=== PATIENT | male | born 1970 | race African-American/Black ===

== ENCOUNTER → 2016-09-25 | Outpatient (CLI) | payer OTHER ==
[~2016-09-25] MED LIST: ACET-1256 PO; ASPEC325 PO; ASPI325T45 PO; CEFT1INJ57 IV; DAPT500I IV; HYDR1OIN EXT; IBUP-1427 PO; MIRT15TA53 PO; NZRCR EXT; ULT50X PO; VANC500I IV
== END ==
LOC: C.LAB 23:57
PROVIDERS: ATTEND Nurse Practitioner Adult Health
DX: L03.116 Cellulitis of left lower limb (principal)

== ENCOUNTER → 2016-09-28 | Outpatient (CLI) | payer OTHER | LOC: C.LABSPEC 10:53 | DX: L03.90 Cellulitis, unspecified (principal) ==

== ENCOUNTER → 2016-10-01 | Outpatient (CLI) | payer OTHER | LOC: C.LABSPEC 11:26 | DX: L03.90 Cellulitis, unspecified (principal) ==

== ENCOUNTER 2016-10-05 11:01 | Inpatient (IN) | payer OTHER ==
[~2016-10-05] VITALS: Ht 188 cm; Wt 100.0 kg
[2016-10-05 11:07] VITALS: Ht 188 cm; Wt 100.0 kg
[2016-10-05] MEDS ORDERED: VANC500I IV (11:18)
[2016-10-05] MEDS ORDERED: CEFT1INJ57 IV (11:18)
[2016-10-05] MEDS ORDERED: MIRT15TA53 PO (11:19)
[2016-10-05] MEDS ORDERED: ACET-1256 PO (11:20)
[2016-10-05] MEDS ORDERED: MoRPHine SULFATE 4 MG/ML 1 ML CARP\\VIAL IV STA (11:39)
[2016-10-05] MEDS ORDERED: SODIUM CHLORIDE 0.9% 1000ML 1,000 ML IV ONE (11:45)
[2016-10-05 12:28] LABS: BASO % 0.6 %; BASO ABS # 0.02 K/uL (0-0.2); COMPLETE YES; EOS % 1.7 %; LYMPH % 23.7 %; LYMPH ABS # 0.82 K/uL (1.2-3.4); MEAN CELL VOLUME 93.7 fL (80-100); MEAN CORPUSCULAR HEMOGLOBIN 30.6 pg (25-34); MEAN CORPUSCULAR HGB CONC 32.7 g/dl (32-36); MEAN PLATELET VOLUME 9.9 fL (7.4-10.4); MONO % 6.1 %; NEUT % 67.9 %; PLATELET COUNT 195 K/uL (130-400); RED BLOOD COUNT 3.95 M/uL (4.7-6.1); WHITE BLOOD COUNT 3.46 K/uL (4.8-10.8)
[2016-10-05 12:53] LABS: BUN/CREATININE RATIO 9.5 (10-20); CALCIUM 8.6 mg/dl (8.5-10.1); CREATININE 1.1 mg/dl (0.60-1.40); POTASSIUM 3.5 mmol/L (3.5-5.1)
--- NOTE | 2016-10-05 14:46 | DIAGNOSTIC IMAGING REPORT ---
ULTRASOUND LEFT LOWER EXTREMITY VENOUS CLINICAL HISTORY: Left leg pain and erythema. COMPARISON STUDY: No priors. TECHNIQUE: Real-time, grayscale, and color Doppler sonography of the deep veins of the left lower extremity was performed from the inguinal crease to the calf. Compression and augmentation were utilized. FINDINGS: There is no sonographic evidence of deep venous thrombosis identified in the left lower extremity. The common femoral, superficial femoral, and popliteal veins are patent and normally compressible. The greater saphenous vein and the profunda femoris vein at the junction with the common femoral vein are clear. The visualized calf veins are patent. Superficial venous varicosities are identified in the calf, some of which demonstrate internal thrombus. Prominent left inguinal lymph nodes are incidentally noted. IMPRESSION: 1. There is no sonographic evidence of deep venous thrombosis identified in the left lower extremity. 2. There are superficial venous varicosities in the left calf. Some of these contain trace nonocclusive thrombus. 3. Prominent left inguinal lymph nodes are likely reactive. Clinical correlation will be required. Electronically signed by: Jareth Gonsalez M.D. 10/05/2016 2:45 PM Dictated Date/Time: 10/05/2016 2:44 PM
--- NOTE | 2016-10-05 15:34 | History and Physical ---
History & Physical Date & Time of Service: Oct 05, 2016 at 15:30 Chief Complaint: Bilateral Lower Extremity Pain, Warm To Touch Primary Care Physician: [place] History of Present Illness Source: patient 46 y/o M with no significant PMH , resident of [place] here with c/o b/l lower extremity swelling and pain which started about 2 weeks ago. He was initially treated with Augmentin for about a week and was later started on vancomycin from Sep 30. He also had an I&D done for a possible abscess which only drained blood. Us Doppler of LLE was negative. He developed fever since yesterday and his temperate was recorded at 102.5 F. He complains of excruciating pain in left lower extremity, 8/10 , worse on ambulation and palpation. also c/o RLE pain along and above the medial malleolus which started this morning and also noticed hyperpigmentation on the area. denies any h/o trauma/insect bites/loss of sensation/bluish discoloration of toes. He denies URTI s/s cough, wheezing, shortness of breath, claudication, cramping , abdominal pain, nausea, vomiting, diarrhea or urinary symptoms. Past Medical/Surgical History Depression Social History Smoking Status: Never Smoker Allergies Coded Allergies: Shrimp (Verified Allergy, Unknown, HIVES, 10/05/16) Home Medications Scheduled Ceftriaxone Sod (Rocephin), 2 GM IV DAILY Mirtazapine (Mirtazapine), 15 MG PO HS Vancomycin Hcl In Dextrose (Vancomycin Hcl In Dextros), 2 GM IV DAILY Scheduled PRN Acetaminophen (Tylenol), 1,000 MG PO QID PRN for Pain Review of Systems Constitutional: + chills, + fever Eyes: No worsening of vision ENT: No hearing loss Respiratory: No cough, No dyspnea on exertion, No shortness of breath, No sputum Cardiovascular: No chest pain Abdomen: No diarrhea, No nausea, No pain, No vomiting Genitourinary - Male: No dysuria, No urinary frequency Integumentary: + color change (increased pigmentatyion on RLE) Physical Exam Vital Signs Date Time Temp Pulse Resp B/P Pulse Ox O2 Delivery O2 Flow Rate FiO2 10/05/16 14:13 58 18 153/96 97 Room Air 10/05/16 12:31 65 18 169/113 97 Room Air 10/05/16 11:07 37.6 74 18 173/97 98 Room Air General Appearance: WD/WN, + mild distress Head: normocephalic Eyes: normal inspection ENT: hearing grossly normal Neck: supple, no adenopathy Respiratory/Chest: chest non-tender, lungs clear, normal breath sounds Cardiovascular: regular rate, rhythm, no murmur Abdomen/GI: normal bowel sounds, non tender, soft Back: normal inspection Extremities/Musculoskelatal: no calf tenderness Neurologic/Psych: alert, normal mood/affect, oriented x 3, + pertinent finding (LLE mild swelling and erythema. s/p I&D, warm and tender to palpation. normal ROM, pulses and sensation. RLE: hyperpigmemnted, extremely tender to palpation along medial malleolus, no erythema or warmth ) Skin: + pertinent finding (hyperpigmentation along RLE) Diagnostics Laboratory Results Results Past 24 Hours Test 10/05/16 12:10 10/05/16 12:13 Range/Units White Blood Count 3.46 4.8-10.8 K/uL Red Blood Count 3.95 4.7-6.1 M/uL Hemoglobin 12.1 14.0-18.0 g/dL Hematocrit 37.0 42-52 % Mean Corpuscular Volume 93.7 80-100 fL Mean Corpuscular Hemoglobin 30.6 25-34 pg Mean Corpuscular Hemoglobin Concent 32.7 32-36 g/dl Platelet Count 195 130-400 K/uL Mean Platelet Volume 9.9 7.4-10.4 fL Neutrophils (%) (Auto) 67.9 % Lymphocytes (%) (Auto) 23.7 % Monocytes (%) (Auto) 6.1 % Eosinophils (%) (Auto) 1.7 % Basophils (%) (Auto) 0.6 % Neutrophils # (Auto) 2.35 1.4-6.5 K/uL Lymphocytes # (Auto) 0.82 1.2-3.4 K/uL Monocytes # (Auto) 0.21 0.11-0.59 K/uL Eosinophils # (Auto) 0.06 0-0.5 K/uL Basophils # (Auto) 0.02 0-0.2 K/uL RDW Standard Deviation 45.0 36.4-46.3 fL RDW Coefficient of Variation 13.1 11.5-14.5 % Immature Granulocyte % (Auto) 0.0 % Immature Granulocyte # (Auto) 0.00 0.00-0.02 K/uL Sodium Level 142 136-145 mmol/L Potassium Level 3.5 3.5-5.1 mmol/L Chloride Level 103 98-107 mmol/L Carbon Dioxide Level 29 21-32 mmol/L Anion Gap 10.0 3-11 mmol/L Blood Urea Nitrogen 11 7-18 mg/dl Creatinine 1.10 0.60-1.40 mg/dl Est Creatinine Clear Calc Drug Dose 103.9 ml/min Estimated GFR () 91.5 Estimated GFR (Non- 79.0 BUN/Creatinine Ratio 9.5 10-20 Random Glucose 77 70-99 mg/dl Calcium Level 8.6 8.5-10.1 mg/dl Bedside Lactic Acid Venous 1.00 0.90-1.70 mmol/L Microbiology Results 10/05/16 Blood Culture, Received Pending 10/05/16 Blood Culture, Received Pending Diagnostic Radiology [~ rep ct add3]] ULTRASOUND LEFT LOWER EXTREMITY VENOUS CLINICAL HISTORY: Left leg pain and erythema. COMPARISON STUDY: No priors. TECHNIQUE: Real-time, grayscale, and color Doppler sonography of the deep veins of the left lower extremity was performed from the inguinal crease to the calf. Compression and augmentation were utilized. FINDINGS: There is no sonographic evidence of deep venous thrombosis identified in the left lower extremity. The common femoral, superficial femoral, and popliteal veins are patent and normally compressible. The greater saphenous vein and the profunda femoris vein at the junction with the common femoral vein are clear. The visualized calf veins are patent. Superficial venous varicosities are identified in the calf, some of which demonstrate internal thrombus. Prominent left inguinal lymph nodes are incidentally noted. IMPRESSION: 1. There is no sonographic evidence of deep venous thrombosis identified in the left lower extremity. 2. There are superficial venous varicosities in the left calf. Some of these contain trace nonocclusive thrombus. Impression Assessment and Plan 46 y/o M , resident of [facility] here with left lower extremity swelling since 2 weeks and a fever which started yesterday after failing OP treatment with oral Augmentin and IV vancomycin and Rocephin. Cellulitis of left lower extremity: - Failed OP treatment with vancomycin, ceftriaxone and Augmentin - lactate WNL - BC pending - Left lower extremity US Doppler: negative - IV daptomycin and primaxin - ID consult - MRI left LE for any deep seated infection - Pain control with morphine q4h Right lower extremity tenderness - exquisite tenderness to palpation with hyperpigmentation but no typical cellulitis s/s, sensation and pulses intact - US Doppler - Xray Tib/fib New onset fever : likely sec to cellulitis UA: negative No URTI s/s Depression: - continue mirtazapine DVT prophylaxis: Lovenox Full code Dispo: admit to Med/surg Level of Care Med/Surg Resuscitation Status FULL RESUSCITATION VTE Prophylaxis Risk Level: Moderate Given or contraindicated: Enoxaparin (Lovenox)SQ Note Total Time: Critical Care 30 - 74 minutes Reviewed: Pt Seen/Exam by Me, RN Notes, HO Notes, Prior Records, Labs, RAD History Resident Physician Supervision Note: I was present with Dr. Ordonez during the history and exam. I discussed the case with the resident and agree with the findings and plan as documented in the note. Any exceptions or clarifications are listed here: A 46 yo male, who is a resident of [facility] comes with left lower extremity swelling since 2 weeks and a fever which started yesterday after failing outpatient treatment with oral Augmentin and IV vancomycin and Rocephin IV. Documented By: Maurice Gaviria Constitutional: denies: chills Respiratory: negative: cough Cardiovascular: denies chest pain Gastrointestinal/Abdominal: negative: abdominal pain Musculoskeletal: negative: back pain Neurological/Psych: negative: depressed Hematologic/Lymphatic: negative: anemia General Appearance: WD/WN, no apparent distress Eye Exam: bilateral eye normal inspection Ears, Nose, Throat: hearing grossly normal, pharynx normal Neck: non-tender, supple Respiratory: chest non-tender, normal breath sounds Cardiovascular: normal peripheral pulses, no edema Gastrointestinal: normal bowel sounds, soft Extremities: normal range of motion, other (left lower leg fluctuant mass present in anterolateral aspect, tender to touch, right malleolus skin discoloration) Neurologic/Psychiatric: alert Skin Characteristics: normal color (as above) Lymphatic: no adenopathy Assessment/Plan A 46 yo male, who is a resident of [facility] comes with left lower extremity swelling since 2 weeks and a fever which started yesterday after failing outpatient treatment with oral Augmentin and IV vancomycin and Rocephin IV. 1. Cellulitis of left lower extremity: admit to Med/surg Failed outpatient treatment with vancomycin, ceftriaxone and Augmentin blood culture pending Left lower extremity US Doppler: negative start IV daptomycin and IV primaxin ID consulted MRI left LE for any deep seated infection Pain control with morphine q4h Right lower extremity tenderness exquisite tenderness to palpation with hyperpigmentation but no typical cellulitis s/s, sensation and pulses intact check US Doppler right leg check Xray Tib/fib New onset fever : likely secondary to cellulitis UA: negative Depression: continue mirtazapine DVT prophylaxis: Lovenox sq Full code case discussed with Dr Ordonez time spent 50 min
[2016-10-05] MEDS ORDERED: POLYETHYLENE (MIRALAX) 17 GM PACK PO PRN (15:45)
[2016-10-05] MEDS ORDERED: ONDANSETRON INJ 2 MG/ML 2 ML VIAL IV PRN (15:45)
[2016-10-05 16:30] LABS: INR 1.1 (0.9-1.1); PARTIAL THROMBOPLASTIN RATIO 1.1; PROTHROMBIN TIME (PATIENT) 12.3 SECONDS (9.0-12.0)
--- NOTE | 2016-10-05 17:11 | DIAGNOSTIC IMAGING REPORT ---
RIGHT TIBIA/FIBULA 2 VIEWS ROUTINE CLINICAL HISTORY: Cellulitis COMPARISON: None. DISCUSSION: No fractures or dislocations are visualized. There are no bony destructive lesions. There is mild diffuse soft tissue swelling. IMPRESSION: 1. No fractures identified 2. No bony destructive lesions identified. Electronically signed by: Sal Summers M.D. 10/05/2016 5:10 PM Dictated Date/Time: 10/05/2016 5:09 PM
[2016-10-05 18:30] VITALS: BP 166/102; PULSE 64; TEMP 36.9; O2SAT 96
[2016-10-05] MEDS ORDERED: MoRPHine SULFATE 4 MG/ML 1 ML CARP\\VIAL IV PRN (18:30)
[2016-10-05] MEDS: DAPTOmycin IV 400 MG in SODIUM CHLORIDE 0.9% 50ML 50 ML IV SCH (19:29)
--- NOTE | 2016-10-05 20:28 | EMERGENCY ROOM VISIT NOTE ---
ED Visit Note First contact with patient: 11:29 Chief Complaint: Left leg pain. History of Present Illness: Mr. Parada is a 46-year-old male who ambulates into the ED accompanied by 2 half-way guards complaining of bilateral lower leg pain. Longterm records revealed patient is being treated for a left lower leg cellulitis with IV antibiotics of vancomycin and Rocephin for the last 5 days with worsening symptoms. They report patient started complaining of pain approximately 2 weeks ago. Antibiotics were started on September 30. They noted increasing swelling of the left lower leg that was warm to the touch. After 2 or 3 days they felt there was a possible abscess and I&D procedure was performed but only drained blood. He also reports this morning patient had 102.5F temperature. No additional laboratory or imaging studies were presented. Patient reports he has a pressure and sharp pain in the left lower leg over the anterior aspect of the tibia. He rates his discomfort 8/10. The pain is nonradiating. The pain worsens with palpation and ambulation. He has not identified any alleviating factors related to the pain. He reports she's been having Tylenol for pain without relief of his discomfort. Associated with his pain he reports today he was having fevers and chills and generally he's been having a decreased appetite. Additionally he reported this morning he started having right lower leg pain 3- 4 cm . He has not noted any symptoms except for pain in this area. He denies headache, dizziness, upper respiratory tract symptoms, cough, wheezing , shortness of breath, palpitations, previous clots, claudication, cramping, recent surgery/inactivity/extended travel, abdominal pain, nausea, vomiting, back/flank pain, lower extremity weakness/numbness/tingling. Review of Systems: As noted above in history of present illness. All body systems were reviewed and found to be negative as noted above. Past Medical History: Depression. Current Medications: Vancomycin, Rocephin, Tylenol, Mirtazapine. Allergies to Medications: Patient denies. Social History: Patient is currently incarcerated. Physical Examination: Vital Signs: Date Time Temp Pulse Resp B/P Pulse Ox O2 Delivery O2 Flow Rate FiO2 10/05/16 14:13 58 18 153/96 97 Room Air 10/05/16 12:31 65 18 169/113 97 Room Air 10/05/16 11:07 37.6 74 18 173/97 98 Room Air GENERAL: 46-year-old male in mild to moderate distress due to pain, nontoxic- appearing, afebrile and hemodynamically stable. NEUROLOGICAL: Awake, alert and oriented to person, place and time. Answering questions appropriately and following commands. Good hand eye coordination. No focal motor or sensory deficits. SKIN: Warm, dry and pink. Left Lower Leg: Over the anterior aspect of the leg there is moderate erythema, edema and warmth. This entire area is tender. There is no lymphangitis. Right Lower Leg: Small area just superior to the ankle over the anterior ankle is mildly tender to palpation but there is no erythema, edema or warmth. HEENT: Atraumatic and normocephalic. PERRLA. Sclera white and conjunctiva pink. No drainage from naris. Oral cavity moist and pink. Pharynx is nonerythematous or edematous. Speech normal. No lymphadenopathy. Trachea midline. No jugular venous distention. BACK: No tenderness over the bony spine. No CVA tenderness. THORAX: Lungs sounds are clear to auscultation and equal bilaterally with symmetrical chest wall. No wheezing, rales or rhonchi. No crepitus, tenderness , subcutaneous air or deformities noted. HEART: Regular rate and rhythm. No gallops, rubs or murmurs are appreciated. ABDOMEN: Flat, soft and nontender. Positive bowel sounds in all quadrants. No guarding, rigidity or organomegaly. Moderate tenderness in the left inguinal area without palpable nodes. EXTREMITIES: Moves all extremities well on command and with purpose. All distal neurovascular statuses are intact and equal bilaterally. No calf tenderness or cords. Left lower leg shows moderate tenderness, erythema and edema. Warmth without streaking. Full range of motion in flexion and extension of the knee and plantar flexion and dorsiflexion of the ankle. There is a slightly fluctuant mass over this area but it does not appear to be an abscess; lacking erythema and edema. Distal pulses and sensations are intact. ED Course: Patient is assessed as noted above. Laboratory Testing: Test 10/05/16 12:10 10/05/16 12:13 Range/Units White Blood Count 3.46 4.8-10.8 K/uL Red Blood Count 3.95 4.7-6.1 M/uL Hemoglobin 12.1 14.0-18.0 g/dL Hematocrit 37.0 42-52 % Mean Corpuscular Volume 93.7 80-100 fL Mean Corpuscular Hemoglobin 30.6 25-34 pg Mean Corpuscular Hemoglobin Concent 32.7 32-36 g/dl Platelet Count 195 130-400 K/uL Mean Platelet Volume 9.9 7.4-10.4 fL Neutrophils (%) (Auto) 67.9 % Lymphocytes (%) (Auto) 23.7 % Monocytes (%) (Auto) 6.1 % Eosinophils (%) (Auto) 1.7 % Basophils (%) (Auto) 0.6 % Neutrophils # (Auto) 2.35 1.4-6.5 K/uL Lymphocytes # (Auto) 0.82 1.2-3.4 K/uL Monocytes # (Auto) 0.21 0.11-0.59 K/uL Eosinophils # (Auto) 0.06 0-0.5 K/uL Basophils # (Auto) 0.02 0-0.2 K/uL RDW Standard Deviation 45.0 36.4-46.3 fL RDW Coefficient of Variation 13.1 11.5-14.5 % Immature Granulocyte % (Auto) 0.0 % Immature Granulocyte # (Auto) 0.00 0.00-0.02 K/uL Sodium Level 142 136-145 mmol/L Potassium Level 3.5 3.5-5.1 mmol/L Chloride Level 103 98-107 mmol/L Carbon Dioxide Level 29 21-32 mmol/L Anion Gap 10.0 3-11 mmol/L Blood Urea Nitrogen 11 7-18 mg/dl Creatinine 1.10 0.60-1.40 mg/dl Est Creatinine Clear Calc Drug Dose 103.9 ml/min Estimated GFR () 91.5 Estimated GFR (Non- 79.0 BUN/Creatinine Ratio 9.5 10-20 Random Glucose 77 70-99 mg/dl Calcium Level 8.6 8.5-10.1 mg/dl Bedside Lactic Acid Venous 1.00 0.90-1.70 mmol/L Blood Culture: Pending Left Lower Leg Doppler Ultrasound: Was reviewed by myself and read by the radiologist showing no evidence of deep vein thrombus in the left lower extremity, superficial venous varicosities in the left calf and trace nonocclusive thrombus in the varicosities. Also noted was a prominent left inguinal lymph nodes. Patient was hydrated with normal saline and received 4 mg of morphine IV for pain. Patient was reassessed multiple times during his stay in the emergency department. Patient's case was reviewed with Dr. Helton; we agreed on diagnostic approach, treatment, disposition and plan. Patient's case was reviewed with case management and Dr. Yee, hospitalist; for medical observation/admission. Patient was educated about tonight's findings. Clinical Impression: Left lower leg cellulitis. Failed outpatient management. Decision-Making: Initially my differential diagnosis I considered abscess, cellulitis, osteomyelitis, deep vein thrombus and other causes. Disposition and Plan: Patient be brought in the hospital for observation/ admission; please see hospitalist notes and orders for final disposition and plan.
[2016-10-05] MEDS: IMIPENEM/CILASTATIN IV 500 MG in DEXTROSE 5% 100ML 100 ML IV SCH (20:33)
[2016-10-05] MEDS: ENOXAPARIN 40 MG/0.4 ML SYR SQ SCH (20:36)
[2016-10-05 22:35] LABS: MANUAL MICROSCOPIC REQUIRED? NO; REVIEW REQ? NO; URINE APPEARANCE CLEAR (CLEAR); URINE BILIRUBIN NEG (NEG); URINE COLOR YELLOW; URINE NITRITE NEG (NEG); URINE SPECIFIC GRAVITY 1.017 (1.000-1.030); UROBILINOGEN NEG (NEG); ZZUR CULT IF INDIC CLEAN CATCH NO
[2016-10-05] MEDS ORDERED: GADAVIST IV PRN (23:00)
--- NOTE | 2016-10-05 23:06 | DIAGNOSTIC IMAGING REPORT ---
MRI OF THE LEFT LOWER LEG WITHOUT A WITH GADOLINIUM CLINICAL HISTORY: Cellulitis. Possible abscess. Possible osteomyelitis. COMPARISON STUDY: Conventional radiographic study dated to FINDINGS: Imaging was performed in the sagittal, coronal, and axial planes, before and after the administration of 10 cc of intravenous Gadavist. There are no areas of marrow replacement to indicate osteomyelitis. There are multiple superficial varicosities present. There is moderate diffuse subcutaneous edema. No intramuscular masses are visualized. There are no fluid collections to indicate an abscess. There are no pathologically enhancing masses. IMPRESSION: 1. Subcutaneous edema consistent with history of cellulitis 2. No evidence of focal abscess 3. No evidence of osteomyelitis 4. Multiple superficial varicosities Electronically signed by: Sal Summers M.D. 10/05/2016 11:04 PM Dictated Date/Time: 10/05/2016 11:01 PM
[2016-10-05 23:40] VITALS: BP 174/101; PULSE 74; TEMP 37.9; O2SAT 96
[2016-10-06 00:35] VITALS: BP 167/96; TEMP 38.4
[2016-10-06] MEDS: ACETAMINOPHEN 325 MG TAB PO PRN ×3 (00:43→15:45)
[2016-10-06 01:42] VITALS: TEMP 38.2
[2016-10-06] MEDS: IMIPENEM/CILASTATIN IV 500 MG in DEXTROSE 5% 100ML 100 ML IV SCH ×4 (01:58→20:27)
[2016-10-06 02:00] VITALS: TEMP 38
[2016-10-06 05:15] LABS: INFLUENZA A PCR Neg for Influ A (NEG); INFLUENZA B PCR Neg for Influ B (NEG)
--- NOTE | 2016-10-06 07:05 | DIAGNOSTIC IMAGING REPORT ---
ULTRASOUND RIGHT LOWER EXTREMITY VENOUS CLINICAL HISTORY: Right leg pain. COMPARISON STUDY: No priors. TECHNIQUE: Real-time, grayscale, and color Doppler sonography of the deep veins of the right lower extremity was performed from the inguinal crease to the calf. Compression and augmentation were utilized. FINDINGS: There is no sonographic evidence of deep venous thrombosis identified in the right lower extremity. The common femoral, superficial femoral, and popliteal veins are patent and normally compressible. The greater saphenous vein and the profunda femoris vein at the junction with the common femoral vein are clear. The visualized calf veins are patent. IMPRESSION: There is no sonographic evidence of deep venous thrombosis identified in the right lower extremity. Electronically signed by: Jareth Gonsalez M.D. 10/06/2016 7:04 AM Dictated Date/Time: 10/06/2016 7:04 AM
[2016-10-06 07:18] VITALS: BP 153/88; PULSE 77; TEMP 37.7; O2SAT 96
--- NOTE | 2016-10-06 09:38 | Medical Consult ---
Consultation Date of Consultation: Oct 06, 2016. Attending Physician: Truong Young D.O. Reason for Consultation: Cellulitis, failed vancomycin therapy History of Present Illness 46-year-old male, prisoner at [facility], with only history of depression but otherwise in good health, reportedly developed left lower extremity redness, pain, swelling associated with fever chills 1 week ago. Failed initial treatment with Augmentin then was given IV vancomycin and ceftriaxone and had progressive worsening with fever to 103, and then involvement of the right ankle with redness, swelling, and severe tenderness. He was in the hospital and started on IV daptomycin and imipenem and has shown significant improvement since last night. Erythema started to regress, tenderness lessening. MRI scan , read by me, shows no evidence of deep infection or collection. Tibial x-rays negative for fracture. Has had fever overnight. Tolerating his antibiotics without apparent difficulty. Past Medical/Surgical History Medical Problems: (1) Lower extremity cellulitis Past medical history: Depression past surgical history: None Family History Noncontributory Social History Smoking Status: Unknown if Ever Smoked Allergies Coded Allergies: Shrimp (Verified Allergy, Unknown, HIVES, 10/05/16) Current Inpatient Medications Current Inpatient Medications Medications (Trade) Dose Ordered Sig/Moises Route Start Time Stop Time Status Last Admin Dose Admin Enoxaparin Sodium (Lovenox Inj) 40 mg Q24H SQ 10/05/16 21:00 11/04/16 20:59 10/05/16 20:36 40 MG Acetaminophen (Tylenol Tab) 650 mg Q4H PRN PO 10/05/16 15:45 11/04/16 15:44 10/06/16 08:26 650 MG Polyethylene (Miralax Powder Packet) 17 gm DAILY PRN PO 10/05/16 15:45 11/04/16 15:44 Ondansetron HCl 4 mg 4 mg Q6H PRN IV 10/05/16 15:45 11/04/16 15:44 Daptomycin 400 mg/ Sodium Chloride 58 ml @ 100 mls/hr DAILY@1900 IV 10/05/16 19:00 10/15/16 18:59 10/05/16 19:29 100 MLS/HR Imipenem/ Cilastatin Sodium/ Dextrose (Primaxin Iv/D5 100ml) 110 ml @ 100 mls/hr Q6H IV 10/05/16 20:00 10/15/16 19:59 10/06/16 08:21 100 MLS/HR Morphine Sulfate (MoRPHine SULFATE INJ) 4 mg Q4H PRN IV 10/05/16 18:30 10/19/16 18:29 10/05/16 20:33 4 MG Mirtazapine (Remeron Tab) 15 mg HS PO 10/06/16 21:00 11/05/16 20:59 Gadobutrol (Gadavist) 10 mmol UD PRN IV 10/05/16 23:00 10/09/16 22:59 Review of Systems All systems were reviewed and are negative except as per HPI Physical Exam Date Time Temp Pulse Resp B/P Pulse Ox O2 Delivery O2 Flow Rate FiO2 10/06/16 02:00 38.0 10/06/16 01:42 38.2 10/06/16 00:35 38.4 167/96 10/06/16 00:35 Room Air 10/05/16 23:40 37.9 74 16 174/101 96 Room Air 10/05/16 19:20 Room Air 10/05/16 18:30 36.9 64 16 166/102 96 Room Air 10/05/16 17:30 67 167/103 98 Room Air 10/05/16 14:13 58 18 153/96 97 Room Air 10/05/16 12:31 65 18 169/113 97 Room Air 10/05/16 11:07 37.6 74 18 173/97 98 Room Air General Appearance: WD/WN, no apparent distress Head: normocephalic, atraumatic Eyes: normal inspection, EOMI, sclerae normal ENT: normal ENT inspection, hearing grossly normal, pharynx normal Neck: supple, no adenopathy, thyroid normal, trachea midline Respiratory/Chest: chest non-tender, lungs clear, normal breath sounds, no respiratory distress Cardiovascular: regular rate, rhythm, no gallop, no murmur Abdomen/GI: normal bowel sounds, non tender, soft, no organomegaly Back: normal inspection, no CVA tenderness Extremities/Musculoskelatal: no calf tenderness, normal capillary refill, + inflammation, + swelling Neurologic/Psych: alert, oriented x 3 Skin: normal color, warm/dry, + pertinent finding (Left lower extremity with erythema below the mid sagastume to the foot, has receded from the initial marking, discoloration and tenderness with swelling right medial ankle) Lymphatic: no adenopathy Laboratory Results Date/Time Source Procedure Growth Status 10/05/16 12:30 Blood Blood Culture Pending Received 10/05/16 12:10 Blood Blood Culture Pending Received Last 24 Hours Test 10/05/16 12:10 10/05/16 12:13 10/05/16 21:45 10/06/16 02:40 White Blood Count 3.46 K/uL Red Blood Count 3.95 M/uL Hemoglobin 12.1 g/dL Hematocrit 37.0 % Mean Corpuscular Volume 93.7 fL Mean Corpuscular Hemoglobin 30.6 pg Mean Corpuscular Hemoglobin Concent 32.7 g/dl Platelet Count 195 K/uL Mean Platelet Volume 9.9 fL Neutrophils (%) (Auto) 67.9 % Lymphocytes (%) (Auto) 23.7 % Monocytes (%) (Auto) 6.1 % Eosinophils (%) (Auto) 1.7 % Basophils (%) (Auto) 0.6 % Neutrophils # (Auto) 2.35 K/uL Lymphocytes # (Auto) 0.82 K/uL Monocytes # (Auto) 0.21 K/uL Eosinophils # (Auto) 0.06 K/uL Basophils # (Auto) 0.02 K/uL RDW Standard Deviation 45.0 fL RDW Coefficient of Variation 13.1 % Immature Granulocyte % (Auto) 0.0 % Immature Granulocyte # (Auto) 0.00 K/uL Prothrombin Time 12.3 SECONDS Prothromb Time International Ratio 1.1 Activated Partial Thromboplast Time 28.5 SECONDS Partial Thromboplastin Ratio 1.1 Sodium Level 142 mmol/L Potassium Level 3.5 mmol/L Chloride Level 103 mmol/L Carbon Dioxide Level 29 mmol/L Anion Gap 10.0 mmol/L Blood Urea Nitrogen 11 mg/dl Creatinine 1.10 mg/dl Est Creatinine Clear Calc Drug Dose 103.9 ml/min Estimated GFR () 91.5 Estimated GFR (Non- 79.0 BUN/Creatinine Ratio 9.5 Random Glucose 77 mg/dl Calcium Level 8.6 mg/dl Bedside Lactic Acid Venous 1.00 mmol/L Urine Color YELLOW Urine Appearance CLEAR Urine pH 7.0 Urine Specific [place] 1.017 Urine Protein NEG Urine Glucose (UA) NEG Urine Ketones NEG Urine Occult Blood NEG Urine Nitrite NEG Urine Bilirubin NEG Urine Urobilinogen NEG Urine Leukocyte Esterase NEG Influenza Type A (RT-PCR) Neg for Influ A Influenza Type B (RT-PCR) Neg for Influ B Patient Name: CHAYO [id number] Unit Number: [id number] Dictated: 10/05/162300 Transcribed: 10/05/162300 ARG Printed Date/Time: [~ rep prt dt]/[~ rep prt tm] [~ rep ct labl] - [~ rep ct ivnm] [facility] [place] [address] Dictated: 10/05/162300 Transcribed: 10/05/162300 ARG Printed Date/Time: [~ rep prt dt]/[~ rep prt tm] [~ rep ct labl] - [~ rep ct ivnm] Possible abscess. Possible osteomyelitis. COMPARISON STUDY: Conventional radiographic study dated to FINDINGS: Imaging was performed in the sagittal, coronal, and axial planes, before and after the administration of 10 cc of intravenous Gadavist. There are no areas of marrow replacement to indicate osteomyelitis. There are multiple superficial varicosities present. There is moderate diffuse subcutaneous edema. No intramuscular masses are visualized. There are no fluid collections to indicate an abscess. There are no pathologically enhancing masses. IMPRESSION: 1. Subcutaneous edema consistent with history of cellulitis 2. No evidence of focal abscess 3. No evidence of osteomyelitis 4. Multiple superficial varicosities Electronically signed by: Sal Summers M.D. 10/05/2016 11:04 PM Dictated Date/Time: 10/05/2016 11:01 PM The status of this report is Signed. Draft = Not yet reviewed or approved by Radiologist. Signed = Reviewed and approved by Radiologist. <AttendingPhy>Maurice Gaviria MD</AttendingPhy> <FamilyPhy>[place]</ FamilyPhy> <PrimaryPhy[place]</PrimaryPhy> <UnitNumber>[id number]</ UnitNumber> <VisitNumber>[id number]</VisitNumber> <PatientName>CHAYO CAMARILLO [id number]</PatientName> <DateOfBirth>1970</DateOfBirth> <Location>[facility]</ Location> <ServiceDate>10/05/16</ServiceDate> <MNE>ESINDI</MNE> <OrderingPhy> Lori Ordonez MD</OrderingPhy> <OrderingPhyMNE>f rep ord dr thakkar</ OrderingPhyMNE> <DictatingPhyMNE>f rep dict dr thakkar</DictatingPhyMNE> <CCListMNE> f rep ct mne</CCListMNE> <AdmittingPhyMNE>f pt admit dr thakkar</AdmittingPhyMNE> < AttendingPhyMNE>f pt attend dr thakkar</AttendingPhyMNE> <ConsultingPhyMNE>f pt consult dr thakkar</ConsultingPhyMNE> <FamilyPhyMNE>f pt fam dr thakkar</FamilyPhyMNE> <OtherPhyMNE>f pt other dr thakkar</OtherPhyMNE> < PrimaryPhyMNE>f pt prim care dr thakkar</PrimaryPhyMNE> <ReferringPhyMNE>f pt referring dr thakkar</ReferringPhyMNE> Assessment & Plan Bilateral lower extremity cellulitis with excellent response to daptomycin and imipenem. Not clear why patient failed vancomycin unless levels were not adequate. I would continue patient on IV antibiotics as ordered, and likely will require in the range of 7-10 days depending on clinical response. Will discuss with all involved. Will follow.
[2016-10-06] MEDS: TRAMADOL HCL 50 MG TAB PO PRN ×3 (13:31→23:51)
--- NOTE | 2016-10-06 14:36 | Progress Note ---
Subjective Date of Service: Oct 06, 2016. Subjective Pt evaluation today including: conversation w/ patient, physical exam, chart review, lab review, review of studies, review of inpatient medication list Review of Systems Constitutional: No chills, No fever Respiratory: No cough, No dyspnea on exertion, No shortness of breath, No sputum, No wheezing Cardiac: No chest pain, No orthopnea Abdomen: No constipation, No diarrhea, No nausea, No pain, No vomiting Musculoskeletal: No joint pain, No muscle pain Male : No dysuria, No urinary frequency Objective Vital Signs Date Time Temp Pulse Resp B/P Pulse Ox O2 Delivery O2 Flow Rate FiO2 10/06/16 08:20 Room Air 10/06/16 07:18 37.7 77 19 153/88 96 Room Air 10/06/16 02:00 38.0 10/06/16 01:42 38.2 10/06/16 00:35 38.4 167/96 10/06/16 00:35 Room Air 10/05/16 23:40 37.9 74 16 174/101 96 Room Air 10/05/16 19:20 Room Air 10/05/16 18:30 36.9 64 16 166/102 96 Room Air 10/05/16 17:30 67 167/103 98 Room Air Physical Exam General Appearance: WD/WN, no apparent distress Neck: supple, no adenopathy Respiratory/Chest: chest non-tender, lungs clear, normal breath sounds Cardiovascular: no edema, no gallop Abdomen: non tender, soft Neurologic/Psychiatric: alert, oriented x 3 Laboratory Results Last 24 Hours Test 10/05/16 21:45 10/06/16 02:40 Urine Color YELLOW Urine Appearance CLEAR Urine pH 7.0 Urine Specific [place] 1.017 Urine Protein NEG Urine Glucose (UA) NEG Urine Ketones NEG Urine Occult Blood NEG Urine Nitrite NEG Urine Bilirubin NEG Urine Urobilinogen NEG Urine Leukocyte Esterase NEG Influenza Type A (RT-PCR) Neg for Influ A Influenza Type B (RT-PCR) Neg for Influ B Assessment and Plan A 46 yo male, who is a resident of [facility] comes with left lower extremity swelling since 2 weeks and a fever which started yesterday after failing outpatient treatment with oral Augmentin and IV vancomycin and Rocephin IV. 1. Cellulitis of left lower extremity: admitted to Med/surg Failed outpatient treatment with vancomycin, ceftriaxone and Augmentin blood culture pending Left lower extremity US Doppler: negative Cont IV daptomycin and IV primaxin ID consulted - Keep IV antibx, likely need 7-10 day course MRI left LE neg for any deep seeded infection Pain control with morphine q4h Right lower extremity tenderness exquisite tenderness to palpation with hyperpigmentation but no typical cellulitis s/s, sensation and pulses intact check US Doppler right leg check Xray Tib/fib New onset fever : likely secondary to cellulitis UA: negative Depression: continue mirtazapine DVT prophylaxis: Lovenox sq Full code
[2016-10-06 15:19] VITALS: BP 160/84; PULSE 72; TEMP 38.1; O2SAT 97
[2016-10-06] MEDS: DAPTOmycin IV 400 MG in SODIUM CHLORIDE 0.9% 50ML 50 ML IV SCH (19:05)
[2016-10-06] MEDS: ENOXAPARIN 40 MG/0.4 ML SYR SQ SCH (20:27)
[2016-10-06] MEDS: MIRTAZAPINE TAB 15 MG TAB PO SCH (20:27)
[2016-10-06 23:20] VITALS: BP 172/93; PULSE 64; TEMP 37.2; O2SAT 96
[2016-10-07] MEDS ORDERED: LORAZEPAM INJ 1 MG in SYRINGE 0.5 ML IV STA (00:24)
[2016-10-07 00:35] VITALS: BP 158/88
[2016-10-07] MEDS: IMIPENEM/CILASTATIN IV 500 MG in DEXTROSE 5% 100ML 100 ML IV SCH ×4 (02:13→20:48)
[2016-10-07] MEDS: TRAMADOL HCL 50 MG TAB PO PRN ×4 (03:45→19:13)
[2016-10-07 07:34] VITALS: BP 147/83; PULSE 80; TEMP 37.6; O2SAT 96
[2016-10-07 10:03] LABS: BASO % 0.6 %; BASO ABS # 0.03 K/uL (0-0.2); COMPLETE YES; EOS % 2.1 %; HEMATOCRIT 35.9 % (42-52); IG% 0.2 %; LYMPH % 24.8 %; LYMPH ABS # 1.21 K/uL (1.2-3.4); MEAN CELL VOLUME 93.2 fL (80-100); MEAN CORPUSCULAR HEMOGLOBIN 30.4 pg (25-34); MEAN CORPUSCULAR HGB CONC 32.6 g/dl (32-36); MEAN PLATELET VOLUME 10.1 fL (7.4-10.4); NEUT % 58.3 %; PLATELET COUNT 210 K/uL (130-400); RED BLOOD COUNT 3.85 M/uL (4.7-6.1); WHITE BLOOD COUNT 4.87 K/uL (4.8-10.8)
[2016-10-07 10:39] LABS: BUN/CREATININE RATIO 8.1 (10-20); CALCIUM 8.3 mg/dl (8.5-10.1); CREATININE 1.1 mg/dl (0.60-1.40); POTASSIUM 3.3 mmol/L (3.5-5.1)
--- NOTE | 2016-10-07 12:00 | Hospitalist Progress Note ---
Hospitalist Progress Note Date of Service Oct 07, 2016. Subjective Pt evaluation today including: conversation w/ patient, physical exam, chart review, lab review, review of inpatient medication list Pain: 7/10 sharp LLE pain PO Intake: Tolerating PO diet Voiding: no voiding problems Patient states that the erythema and swelling in his leg are improving. He complains of 7/10 sharp pain in the LLE. He states that his pain control is adequate with the tramadol and does not want any morphine. He also complains of a sharp pain in his RLE at the medial malleolus and states that earlier in the morning the area had been swollen, although that his since resolved. The patient had a low-grade fever this morning with a temp of 37.6C but denies any chills or sweats. The patient denies chest pain, palpitations, claudication, cough, wheezing, shortness of breath, nausea, vomiting, abdominal pain, dysuria , hematuria, urinary retention, paralysis, weakness, numbness and tingling. Additional Comments: See HPI for pertinent positives and negatives. All other systems reviewed and negative. Objective Vital Signs Date Time Temp Pulse Resp B/P Pulse Ox O2 Delivery O2 Flow Rate FiO2 10/07/16 07:45 Room Air 10/07/16 07:34 37.6 80 17 147/83 96 Room Air 10/07/16 00:35 158/88 10/06/16 23:45 Room Air 10/06/16 23:20 37.2 64 16 172/93 96 Room Air 10/06/16 15:45 Room Air 10/06/16 15:19 38.1 72 16 160/84 97 Room Air Physical Exam General Appearance: WD/WN, no apparent distress Eyes: normal inspection, PERRL, EOMI ENT: normal ENT inspection, hearing grossly normal, pharynx normal Neck: supple, no JVD, trachea midline Respiratory/Chest: lungs clear, normal breath sounds, no respiratory distress Cardiovascular: regular rate, rhythm, no gallop, no murmur Abdomen: normal bowel sounds, non tender, soft Extremities: normal range of motion, + swelling (trace pitting edema in LLE), + pertinent finding (erythema in LLE. Pen outline marking original area of erythema shows that this is improving, area of erythema is smaller. LLE and right medial malleolus TTP.) Neurologic/Psychiatric: alert, normal mood/affect, oriented x 3 Skin: normal color, warm/dry, no rash, + pertinent finding (area of improving erythema on LLE. Area of hyperpigmentation on right medial malleolus) Laboratory Results Last 24 Hours Test 10/07/16 09:35 White Blood Count 4.87 K/uL Red Blood Count 3.85 M/uL Hemoglobin 11.7 g/dL Hematocrit 35.9 % Mean Corpuscular Volume 93.2 fL Mean Corpuscular Hemoglobin 30.4 pg Mean Corpuscular Hemoglobin Concent 32.6 g/dl Platelet Count 210 K/uL Mean Platelet Volume 10.1 fL Neutrophils (%) (Auto) 58.3 % Lymphocytes (%) (Auto) 24.8 % Monocytes (%) (Auto) 14.0 % Eosinophils (%) (Auto) 2.1 % Basophils (%) (Auto) 0.6 % Neutrophils # (Auto) 2.84 K/uL Lymphocytes # (Auto) 1.21 K/uL Monocytes # (Auto) 0.68 K/uL Eosinophils # (Auto) 0.10 K/uL Basophils # (Auto) 0.03 K/uL RDW Standard Deviation 44.5 fL RDW Coefficient of Variation 13.0 % Immature Granulocyte % (Auto) 0.2 % Immature Granulocyte # (Auto) 0.01 K/uL Sodium Level 139 mmol/L Potassium Level 3.3 mmol/L Chloride Level 99 mmol/L Carbon Dioxide Level 30 mmol/L Anion Gap 10.0 mmol/L Blood Urea Nitrogen 9 mg/dl Creatinine 1.10 mg/dl Est Creatinine Clear Calc Drug Dose 103.8 ml/min Estimated GFR () 91.5 Estimated GFR (Non- 79.0 BUN/Creatinine Ratio 8.1 Random Glucose 113 mg/dl Calcium Level 8.3 mg/dl Assessment and Plan 46 y/o male, resident of [facility], with a history of depression presents to the ED on 10/05 with left lower extremity swelling x 2 weeks and a fever which started 1 day prior to arrival. Pt has failed outpatient abx including oral Augmentin and IV vancomycin and Rocephin. Cellulitis of left lower extremity -Admit to med/surg -Lactate WNL -Blood cultures NGTD x 2 -LLE Dopple US negative for DVT -MRI LLE shows cellulitis, negative for abscess, osteomyelitis or other acute disease -Continue IV daptomycin and imipenem -ID consulted, appreciate recs: continue current abx for total of 7-10 day course -Pain control with tramadol 50 mg PO q4h prn pain Right lower extremity tenderness -Area TTP and with hyperpigmentation but no typical cellulitis s/s, sensation and pulses intact -RLE Doppler US negative for DVT -Xray Tib/fib negative for fractures, bony lesions Fevers--likely secondary to cellulitis -UA negative for UTI -BCX NGTD -Cellulitis clinically improving, will continue to monitor for persistent fevers Mild hypokalemia -Potassium 3.3 on 10/07 -KCl 20 mEq PO x 1 -Continue to monitor Depression: -Continue mirtazapine 15 mg PO qhs DVT prophylaxis -Enoxaparin 40 mg SC q24h Code Status -Level I, FULL RESUSCITATION STATUS
[2016-10-07] MEDS ORDERED: POTASSIUM CHLORIDE 20 MEQ TABCR PO ONE (12:30)
[2016-10-07 15:32] VITALS: BP 160/86; PULSE 65; TEMP 37.2; O2SAT 95
[2016-10-07] MEDS: DAPTOmycin IV 400 MG in SODIUM CHLORIDE 0.9% 50ML 50 ML IV SCH (19:14)
--- NOTE | 2016-10-07 19:36 | Infectious Disease Progress Nt ---
Progress Note Date of Service Oct 07, 2016. Subjective Pt evaluation today including: conversation w/ patient, physical exam, chart review, lab review, review of studies, conversation w/ trial consultant, review of inpatient medication list Patient continues to complain of pain in left ankle. Erythema improving. Temperature curve improved. Tolerating antibiotics without apparent difficulty. Blood cultures remain negative to date. All Other Systems: Reviewed and Negative Medications Current Inpatient Medications Medications (Trade) Dose Ordered Sig/Moises Route Start Time Stop Time Status Last Admin Dose Admin Enoxaparin Sodium (Lovenox Inj) 40 mg Q24H SQ 10/05/16 21:00 11/04/16 20:59 10/06/16 20:27 40 MG Acetaminophen (Tylenol Tab) 650 mg Q4H PRN PO 10/05/16 15:45 11/04/16 15:44 10/06/16 15:45 650 MG Polyethylene (Miralax Powder Packet) 17 gm DAILY PRN PO 10/05/16 15:45 11/04/16 15:44 Ondansetron HCl 4 mg 4 mg Q6H PRN IV 10/05/16 15:45 11/04/16 15:44 Daptomycin 400 mg/ Sodium Chloride 58 ml @ 100 mls/hr DAILY@1900 IV 10/05/16 19:00 10/15/16 18:59 10/07/16 19:14 100 MLS/HR Imipenem/ Cilastatin Sodium/ Dextrose (Primaxin Iv/D5 100ml) 110 ml @ 100 mls/hr Q6H IV 10/05/16 20:00 10/15/16 19:59 10/07/16 14:02 100 MLS/HR Morphine Sulfate (MoRPHine SULFATE INJ) 4 mg Q4H PRN IV 10/05/16 18:30 10/19/16 18:29 10/05/16 20:33 4 MG Mirtazapine (Remeron Tab) 15 mg HS PO 10/06/16 21:00 11/05/16 20:59 Gadobutrol (Gadavist) 10 mmol UD PRN IV 10/05/16 23:00 10/09/16 22:59 Tramadol HCl (Ultram Tab) 50 mg Q4H PRN PO 10/06/16 13:30 11/05/16 13:29 10/07/16 19:13 50 MG Objective Vital Signs Date Time Temp Pulse Resp B/P Pulse Ox O2 Delivery O2 Flow Rate FiO2 10/07/16 17:30 Room Air 10/07/16 15:32 37.2 65 18 160/86 95 Room Air 10/07/16 07:45 Room Air 10/07/16 07:34 37.6 80 17 147/83 96 Room Air 10/07/16 00:35 158/88 10/06/16 23:45 Room Air 10/06/16 23:20 37.2 64 16 172/93 96 Room Air Physical Exam General Appearance: WD/WN, no apparent distress Eyes: normal inspection, sclerae normal ENT: normal ENT inspection, pharynx normal Neck: supple, thyroid normal, trachea midline Respiratory/Chest: lungs clear, normal breath sounds, no respiratory distress Cardiovascular: regular rate, rhythm, no gallop, no murmur Abdomen: normal bowel sounds, non tender, soft, no organomegaly Extremities: no calf tenderness, + inflammation Neurologic/Psychiatric: alert, oriented x 3 Skin: normal color, no rash, + pertinent finding (Improving lower extremity erythema, left ankle tender) Lymphatic: no adenopathy Laboratory Results Last 24 Hours Test 10/07/16 09:35 White Blood Count 4.87 K/uL Red Blood Count 3.85 M/uL Hemoglobin 11.7 g/dL Hematocrit 35.9 % Mean Corpuscular Volume 93.2 fL Mean Corpuscular Hemoglobin 30.4 pg Mean Corpuscular Hemoglobin Concent 32.6 g/dl Platelet Count 210 K/uL Mean Platelet Volume 10.1 fL Neutrophils (%) (Auto) 58.3 % Lymphocytes (%) (Auto) 24.8 % Monocytes (%) (Auto) 14.0 % Eosinophils (%) (Auto) 2.1 % Basophils (%) (Auto) 0.6 % Neutrophils # (Auto) 2.84 K/uL Lymphocytes # (Auto) 1.21 K/uL Monocytes # (Auto) 0.68 K/uL Eosinophils # (Auto) 0.10 K/uL Basophils # (Auto) 0.03 K/uL RDW Standard Deviation 44.5 fL RDW Coefficient of Variation 13.0 % Immature Granulocyte % (Auto) 0.2 % Immature Granulocyte # (Auto) 0.01 K/uL Sodium Level 139 mmol/L Potassium Level 3.3 mmol/L Chloride Level 99 mmol/L Carbon Dioxide Level 30 mmol/L Anion Gap 10.0 mmol/L Blood Urea Nitrogen 9 mg/dl Creatinine 1.10 mg/dl Est Creatinine Clear Calc Drug Dose 103.8 ml/min Estimated GFR () 91.5 Estimated GFR (Non- 79.0 BUN/Creatinine Ratio 8.1 Random Glucose 113 mg/dl Calcium Level 8.3 mg/dl Assessment and Plan Bilateral lower extremity cellulitis with excellent response to daptomycin and imipenem. Not clear why patient failed vancomycin unless levels were not adequate. I would continue patient on IV antibiotics as ordered, and likely will require in the range of 7-10 days depending on clinical response. Will discuss with all involved. Will follow.
[2016-10-07] MEDS: MIRTAZAPINE TAB 15 MG TAB PO SCH (20:52)
[2016-10-07] MEDS: ENOXAPARIN 40 MG/0.4 ML SYR SQ SCH (20:52)
[2016-10-07 23:47] VITALS: BP 155/87; PULSE 69; TEMP 37; O2SAT 94
[2016-10-08] MEDS: TRAMADOL HCL 50 MG TAB PO PRN ×5 (00:02→21:21)
[2016-10-08] MEDS: IMIPENEM/CILASTATIN IV 500 MG in DEXTROSE 5% 100ML 100 ML IV SCH ×4 (02:05→19:55)
[2016-10-08 06:55] LABS: HEMATOCRIT 35.7 % (42-52); MEAN CELL VOLUME 94.2 fL (80-100); MEAN CORPUSCULAR HEMOGLOBIN 30.1 pg (25-34); MEAN CORPUSCULAR HGB CONC 31.9 g/dl (32-36); MEAN PLATELET VOLUME 9.9 fL (7.4-10.4); PLATELET COUNT 232 K/uL (130-400); RED BLOOD COUNT 3.79 M/uL (4.7-6.1); WHITE BLOOD COUNT 4.24 K/uL (4.8-10.8)
[2016-10-08 07:20] LABS: BUN/CREATININE RATIO 8.7 (10-20); CALCIUM 8.5 mg/dl (8.5-10.1); POTASSIUM 3.5 mmol/L (3.5-5.1)
[2016-10-08 07:38] VITALS: BP 165/95; PULSE 69; TEMP 37.2; O2SAT 94
[2016-10-08 08:00] VITALS: O2SAT 94
--- NOTE | 2016-10-08 11:38 | Progress Note ---
Subjective Date of Service: Oct 08, 2016. Subjective Pt evaluation today including: conversation w/ patient, physical exam, chart review, lab review, review of studies, review of inpatient medication list Report left lower extremity swelling and pain is a little better compared to yesterday No fever and chill, up and walk Review of Systems Constitutional: No chills, No fatigue, No fever, No problem reported, No sweats , No weakness, No weight loss Eyes: No diplopia, No discharge, No eye pain, No redness, No worsening of vision ENT: No dental problems, No hearing loss, No nasal symptoms, No sore throat, No tinnitus, No trouble swallowing, No unusual epistaxis Respiratory: No cough, No dyspnea at rest, No dyspnea on exertion, No hemoptysis, No shortness of breath, No sputum, No wheezing Cardiac: No PND, No chest pain, No claudication, No edema, No orthopnea, No palpitations Abdomen: No constipation, No diarrhea, No nausea, No pain, No vomiting Musculoskeletal: + see HPI, No calf pain, No joint pain, No muscle pain, No swelling Male : No dysuria, No hematuria, No incontinence, No nocturia more than once/ night, No slowing stream, No urinary frequency Neurologic: No balance problems, No memory loss, No numbness/tingling, No paralysis, No vertigo, No weakness Psychiatric: No anhedonism, No anxiety, No depression symptoms, No insomnia, No substance abuse Heme: No abnormal bleeding/bruising, No clotting problems, No night sweats, No swollen lymph nodes Endo: No excessive thirst, No excessive urination, No fatigue Skin: No bleeding, No color change, No itch, No new/changing skin lesions, No rash Objective Vital Signs Date Time Temp Pulse Resp B/P Pulse Ox O2 Delivery O2 Flow Rate FiO2 10/08/16 08:00 94 Room Air 10/08/16 07:38 37.2 69 18 165/95 94 Room Air 10/08/16 00:00 Room Air 10/07/16 23:47 37.0 69 18 155/87 94 Room Air 10/07/16 17:30 Room Air 10/07/16 15:32 37.2 65 18 160/86 95 Room Air Physical Exam General Appearance: WD/WN, no apparent distress Eyes: normal inspection, PERRL, EOMI, sclerae normal ENT: normal ENT inspection, hearing grossly normal, pharynx normal Neck: supple, no adenopathy, thyroid normal, no JVD, no carotid bruits, trachea midline Respiratory/Chest: chest non-tender, lungs clear, normal breath sounds, no respiratory distress, no accessory muscle use Cardiovascular: regular rate, rhythm, no edema, no gallop, no JVD, no murmur Abdomen: normal bowel sounds, non tender, soft, no organomegaly, no pulsatile mass Extremities: no calf tenderness, normal capillary refill, pelvis stable, + pertinent finding (left lower extremity, and the swelling looks better, local still hot and tender, but is better than yesterday, no open wounds or drainage) Neurologic/Psychiatric: glost tile shader II-XII nml as tested, no motor/sensory deficits, alert, normal mood/affect, oriented x 3 Skin: normal color, warm/dry, no rash Lymphatic: no adenopathy Laboratory Results Last 24 Hours Test 10/08/16 06:28 White Blood Count 4.24 K/uL Red Blood Count 3.79 M/uL Hemoglobin 11.4 g/dL Hematocrit 35.7 % Mean Corpuscular Volume 94.2 fL Mean Corpuscular Hemoglobin 30.1 pg Mean Corpuscular Hemoglobin Concent 31.9 g/dl RDW Standard Deviation 44.7 fL RDW Coefficient of Variation 12.9 % Platelet Count 232 K/uL Mean Platelet Volume 9.9 fL Sodium Level 138 mmol/L Potassium Level 3.5 mmol/L Chloride Level 99 mmol/L Carbon Dioxide Level 32 mmol/L Anion Gap 7.0 mmol/L Blood Urea Nitrogen 9 mg/dl Creatinine 1.00 mg/dl Est Creatinine Clear Calc Drug Dose 114.2 ml/min Estimated GFR () 102.7 Estimated GFR (Non- 88.6 BUN/Creatinine Ratio 8.7 Random Glucose 107 mg/dl Calcium Level 8.5 mg/dl Assessment and Plan 46 y/o male, resident of [facility], with a history of depression presents to the ED on 10/05 with left lower extremity swelling x 2 weeks and a fever which started 1 day prior to arrival. He has no same problem before, he was admitted in this hospital, was discharged home with the oral antibiotics and then was on IV antibiotics for total 14 days Pt has failed outpatient abx including oral Augmentin and IV vancomycin and Rocephin. Cellulitis of left lower extremity, improving /better, -Lactate WNL upon admission -Blood cultures NGTD x 2 so far -LLE Dopple US negative for DVT upon admission -MRI LLE upon admit shows cellulitis, negative for abscess, osteomyelitis or other acute disease - has been on IV daptomycin and imipenem since admission, has been 3 days -ID consulted, appreciate recs: continue current abx for total of 7-10 day course, -Pain control with tramadol 50 mg PO q4h prn pain Fevers--likely secondary to cellulitis Mild hypokalemia replaced For the plan: as indicated in the above patient failed to OUTPATIENT oral antibiotic and IV antibiotics, I believe he is a much complex case with high risk of readmission , he probably need prolonged IV antibiotic treatment Need to have infectious disease more input, I have requested PICC line and will need to narrow down IV antibiotic and planning [facility] to [facility] with [facility] antibiotic infusion. He could be discharged to [facility] tomorrow if infectious disease and us able to narrow down the IV antibiotic DVT prophylaxis ordered Code Status -Level I, FULL RESUSCITATION STATUS Continued [facility] stay due to: multiple IV medications needed Discharge planning: home
[2016-10-08 15:22] VITALS: BP 165/98; PULSE 64; TEMP 36.8; O2SAT 96
--- NOTE | 2016-10-08 16:46 | Infectious Disease Progress Nt ---
Progress Note Date of Service Oct 08, 2016. Subjective Pt evaluation today including: conversation w/ patient, physical exam, chart review, lab review, review of studies, conversation w/ managing consultant clinical professor, review of inpatient medication list patient states that he is improving with decreasing pain, especially in the left ankle. Tolerating antibiotics. Remains afebrile. All Other Systems: Reviewed and Negative Medications Current Inpatient Medications Medications (Trade) Dose Ordered Sig/Moises Route Start Time Stop Time Status Last Admin Dose Admin Enoxaparin Sodium (Lovenox Inj) 40 mg Q24H SQ 10/05/16 21:00 11/04/16 20:59 10/07/16 20:52 40 MG Acetaminophen (Tylenol Tab) 650 mg Q4H PRN PO 10/05/16 15:45 11/04/16 15:44 10/06/16 15:45 650 MG Polyethylene (Miralax Powder Packet) 17 gm DAILY PRN PO 10/05/16 15:45 11/04/16 15:44 10/08/16 09:51 17 GM Ondansetron HCl 4 mg 4 mg Q6H PRN IV 10/05/16 15:45 11/04/16 15:44 Daptomycin 400 mg/ Sodium Chloride 58 ml @ 100 mls/hr DAILY@1900 IV 10/05/16 19:00 10/15/16 18:59 10/07/16 19:14 100 MLS/HR Imipenem/ Cilastatin Sodium/ Dextrose (Primaxin Iv/D5 100ml) 110 ml @ 100 mls/hr Q6H IV 10/05/16 20:00 10/15/16 19:59 10/08/16 13:31 100 MLS/HR Morphine Sulfate (MoRPHine SULFATE INJ) 4 mg Q4H PRN IV 10/05/16 18:30 10/19/16 18:29 10/05/16 20:33 4 MG Mirtazapine (Remeron Tab) 15 mg HS PO 10/06/16 21:00 11/05/16 20:59 Gadobutrol (Gadavist) 10 mmol UD PRN IV 10/05/16 23:00 10/09/16 22:59 Tramadol HCl (Ultram Tab) 50 mg Q4H PRN PO 10/06/16 13:30 11/05/16 13:29 10/08/16 15:36 50 MG Heparin Sodium (Porcine) (Heparin 10 Unit/ ml 5 ml Flush) 5 ml PRN PRN FLUSH 10/08/16 16:00 11/07/16 15:59 Objective Vital Signs Date Time Temp Pulse Resp B/P Pulse Ox O2 Delivery O2 Flow Rate FiO2 10/08/16 15:22 36.8 64 18 165/98 96 Room Air 10/08/16 08:00 94 Room Air 10/08/16 07:38 37.2 69 18 165/95 94 Room Air 10/08/16 00:00 Room Air 10/07/16 23:47 37.0 69 18 155/87 94 Room Air 10/07/16 17:30 Room Air Physical Exam General Appearance: WD/WN, no apparent distress Eyes: normal inspection, EOMI, sclerae normal ENT: normal ENT inspection, pharynx normal Neck: supple, no adenopathy, trachea midline Respiratory/Chest: chest non-tender, lungs clear, normal breath sounds, no respiratory distress Cardiovascular: regular rate, rhythm, no gallop, no murmur Abdomen: normal bowel sounds, non tender, soft, no organomegaly Extremities: no calf tenderness, normal capillary refill Neurologic/Psychiatric: alert, oriented x 3 Skin: normal color, no rash, + pertinent finding ( Improving lower extremity cellulitis) Lymphatic: no adenopathy Laboratory Results Last 24 Hours Test 10/08/16 06:28 White Blood Count 4.24 K/uL Red Blood Count 3.79 M/uL Hemoglobin 11.4 g/dL Hematocrit 35.7 % Mean Corpuscular Volume 94.2 fL Mean Corpuscular Hemoglobin 30.1 pg Mean Corpuscular Hemoglobin Concent 31.9 g/dl RDW Standard Deviation 44.7 fL RDW Coefficient of Variation 12.9 % Platelet Count 232 K/uL Mean Platelet Volume 9.9 fL Sodium Level 138 mmol/L Potassium Level 3.5 mmol/L Chloride Level 99 mmol/L Carbon Dioxide Level 32 mmol/L Anion Gap 7.0 mmol/L Blood Urea Nitrogen 9 mg/dl Creatinine 1.00 mg/dl Est Creatinine Clear Calc Drug Dose 114.2 ml/min Estimated GFR () 102.7 Estimated GFR (Non- 88.6 BUN/Creatinine Ratio 8.7 Random Glucose 107 mg/dl Calcium Level 8.5 mg/dl Assessment and Plan Bilateral lower extremity cellulitis with excellent response to daptomycin and imipenem. Not clear why patient failed vancomycin unless levels were not adequate. I would continue patient on IV antibiotics as ordered, and likely will require in the range of 7-10 days depending on clinical response. Will discuss with all involved. Will follow.
[2016-10-08] MEDS: DAPTOmycin IV 400 MG in SODIUM CHLORIDE 0.9% 50ML 50 ML IV SCH (18:40)
[2016-10-08] MEDS: MIRTAZAPINE TAB 15 MG TAB PO SCH (21:00)
[2016-10-08] MEDS: ENOXAPARIN 40 MG/0.4 ML SYR SQ SCH (21:00)
[2016-10-08 23:09] VITALS: BP 152/85; PULSE 70; TEMP 37; O2SAT 96
[2016-10-09] MEDS: IMIPENEM/CILASTATIN IV 500 MG in DEXTROSE 5% 100ML 100 ML IV SCH ×3 (01:35→13:58)
[2016-10-09] MEDS: TRAMADOL HCL 50 MG TAB PO PRN ×3 (01:36→13:57)
[2016-10-09 07:06] VITALS: BP 156/92; PULSE 81; TEMP 37; O2SAT 97
[2016-10-09] MEDS ORDERED: POLYETHYLENE (MIRALAX) 17 GM PACK PO SCH (09:00)
[2016-10-09 10:06] LABS: HEMATOCRIT 38.4 % (42-52); MEAN CELL VOLUME 93.4 fL (80-100); MEAN CORPUSCULAR HEMOGLOBIN 30.4 pg (25-34); MEAN CORPUSCULAR HGB CONC 32.6 g/dl (32-36); MEAN PLATELET VOLUME 9.8 fL (7.4-10.4); PLATELET COUNT 260 K/uL (130-400); RED BLOOD COUNT 4.11 M/uL (4.7-6.1); WHITE BLOOD COUNT 5.06 K/uL (4.8-10.8)
[2016-10-09 10:32] LABS: BUN/CREATININE RATIO 8.4 (10-20); CALCIUM 8.5 mg/dl (8.5-10.1); CREATININE 1.1 mg/dl (0.60-1.40); POTASSIUM 3.4 mmol/L (3.5-5.1)
[2016-10-09] MEDS ORDERED: KETOCONAZOLE 2% CR 15 GM TUBE EXT ONE (14:00)
[2016-10-09] MEDS ORDERED: POTASSIUM CHLORIDE 20 MEQ TABCR PO ONE (14:00)
[2016-10-09] MEDS ORDERED: HYDROCORTISONE 1% CR 30 GM TUBE EXT ONE (14:00)
[2016-10-09] MEDS ORDERED: ULT50X PO (14:12)
[2016-10-09] MEDS ORDERED: DAPT500I IV ×2 (14:12→14:43)
[2016-10-09] MEDS ORDERED: ASPEC325 PO (14:12)
[2016-10-09] MEDS ORDERED: NZRCR EXT (14:12)
[2016-10-09] MEDS ORDERED: HYDR1OIN EXT (14:12)
--- NOTE | 2016-10-09 14:25 | DIAGNOSTIC IMAGING REPORT ---
RIGHT ANKLE MIN 3 VIEWS ROUTINE CLINICAL HISTORY: Right ankle pain COMPARISON: None. DISCUSSION: No fractures or dislocations are visualized. No erosive or destructive changes are evident. There are small corticated bony densities projected adjacent to the tarsal navicular and the lateral view. These are felt to be old. IMPRESSION: No fractures dislocations or destructive lesions are visualized. Electronically signed by: Sal Summers M.D. 10/09/2016 2:23 PM Dictated Date/Time: 10/09/2016 2:23 PM
--- NOTE | 2016-10-09 14:40 | Discharge Instructions ---
Discharge Instructions Admission Reason for Admission: Lower Extremity Cellulitis (Rosangela Pack .JONNY) Discharge Discharge Diagnosis / Problem: Lower extremity cellulitis (Rosangela Pack PA-C) Discharge Goals Goal(s): Decrease discomfort, Improve disease control, Diagnostic testing, Therapeutic intervention (Rosangela Pack PA-C) Activity Recommendations Activity Limitations: resume your previous activity (as tolerated) . (Rosangela Pack PA-C) Instructions / Follow-Up Instructions / Follow-Up You were admitted to the hospital with redness and swelling of your left leg. You were found to have cellulitis, or a skin infection, which did not respond to the antibiotics that you received as an outpatient. You were placed on two broad-spectrum IV antibiotics which did help improve the infection. Infectious disease was consulted and has been following your case. Per their recommendations, you can be discharged on just one of the antibiotics, called daptomycin through your PICC line in the right arm. You will need a total of 10 days of antibiotics. You received 5 days of antibiotics here in the hospital. You were also found to have a rash called seborrheic dermatitis on your chest and right thigh during your hospital stay. A prescription for a steroid cream has been sent with you to apply daily to these areas until resolution of the rash. Additionally, you were found to have athlete's foot, so an anti-fungal cream has also been sent with you for you to apply to the bottoms of both feet and between your toes every day for the next 6 weeks to ensure resolution. Activity Recommendations: Elevate your left leg above the level of your heart as often as possible to help reduce swelling and pain. New Medications: -Daptomycin 400 mg IV every day for 5 more days. -Tramadol 50 mg by mouth up to every 4 hours as needed for pain -Aspirin 325 mg by mouth twice a day for pain/inflammation, as well as to thin your blood, as some of your varicose veins were found to have trace, non- occlusive clots in them. -Ketoconazole 2% cream to apply to feet daily for 6 weeks as explained above -Hydrocortisone 1% cream to apply to rash areas everyday as explained above You may continue your other home medications. Follow up: Follow up with the medical provider at [facility] to ensure resolution of cellulitis infection. (Rosangela Pack PA-C) Current Hospital Diet Patient's current hospital diet: Vegetarian Diet (Rosangela Pack PA-C) Discharge Diet Recommended Diet: Vegetarian Diet (Rosangela Pack PA-C) Pending Studies Studies pending at discharge: no (Rosangela Pack PA-C) Medical Emergencies . Who to Call and When: Medical Emergencies: If at any time you feel your situation is an emergency, please call 911 immediately. . (Rosangela Pack PA-C) Non-Emergent Contact Non-Emergency issues call your: Primary Care Provider Call Non-Emergent contact if: you have a fever, your pain is worsening, your pain is unusual for you, your pain is concerning you, you have any medication questions . (Rosangela Pack PA-C) Past History Medical & Surgical History: (1) Lower extremity cellulitis (Rosangela Pack PA-C) . "Provider Documentation" section prepared by Rosangela Pack. (Rosangela Pack PA-C) Attending Attestation: Pt seen & examined with ARELY Pack on day of discharge. I agree with her discharge instructions as outlined. Bal Barry MD (Bal Barry MD) VTE Core Measure Inpt VTE Proph given/why not?: Enoxaparin (Lovenox)SQ (Rosangela Pack PA-C)
--- NOTE | 2016-10-09 15:07 | Discharge Summary ---
Discharge Summary Admission Date: Oct 05, 2016 at 15:36 Discharge Date: Oct 09, 2016 Discharge Disposition: Home ([facility]) Principal Diagnosis: Left lower extremity cellulitis (Rosangela Pack, JONNY) Problems/Secondary Diagnoses: varicose veins, left leg non-occlusive tiny thrombus in one of the varicose veins on left leg tinea pedis seborrhea depression hypokalemia elevated blood pressure without diagnosis of HTN Procedures: 1. RLE venous duplex study - negative for DVT 2. LLE venous duplex study - negative for DVT; incidental note of superficial venous varicosities in the left calf, some of which contain trace nonocclusive thrombus 3. MRI LLE - negative for abscess, osteomyelitis, necrotizing fascitis 4. tib-fib x-rays, right leg - normal 5. ankle x-rays, right - normal Consultations: infectious disease - Negrito Owen MD (Bal Barry MD) Medication Reconciliation New Medications: Daptomycin (Daptomycin) 500 Mg Inj 400 MG IV DAILY for 3 Days, #1200 MG 400 mg intravenously through R arm PICC line daily Aspirin (Aspirin) 325 Mg Ectab 325 MG PO BID for 30 Days, #60 TABS Take 1 tablet by mouth twice a day. Hydrocortisone (Topical) (Hydrocortisone) 1 % Oin 1 APPLN EXT DAILY for 30 Days, #1 TUBE Apply to rash yo on center of chest and right thigh each day until resolution. Ketoconazole (Ketoconazole) 45 Appln/15 Gm Cr 1 APPLN EXT DAILY for 42 Days, #42 APPLN Apply to bottoms of both feet and between the toes each day for 6 weeks. Tramadol HCl (Tramadol HCl) 50 Mg Tab 50 MG PO Q4H PRN for Pain for 3 Days, #12 TAB Take 1 tablet by mouth up to every 4 hours as needed for pain. Continued Medications: Acetaminophen (Tylenol) 500 Mg Tab 1000 MG PO QID PRN for Pain, TAB Mirtazapine (Mirtazapine) 15 Mg Tab 15 MG PO HS crush Discontinued Medications: Ceftriaxone Sod (Rocephin) 1 Gm Inj 2 GM IV DAILY, VIAL Vancomycin Hcl In Dextrose (Vancomycin Hcl In Dextros) 1 Inj Inj 2 GM IV DAILY Discharge Exam Patient complains of 8/10 burning pain in his left lower extremity but states that it is tolerable with oral pain medications. He has been taking Tramadol for the pain, which does help alleviate the pain, but only for the first hour or two. The patient also complains of a sharp pain over his right medial malleolus when that area is touched or when he bears weight on that foot. He denies any pain there at rest. He also complains of intermittent nausea that quickly resolves, and denies any vomiting. The patient denies fevers, chills, sweats, chest pain, palpitations, claudication, cough, wheezing, shortness of breath, vomiting, abdominal pain, dysuria, hematuria, urinary retention, paralysis, weakness, numbness and tingling. Review of Systems: Constitutional: No chills, No fever, No sweats Eyes: No diplopia, No eye pain, No worsening of vision ENT: No hearing loss, No sore throat, No trouble swallowing Respiratory: No cough, No shortness of breath, No wheezing Cardiovascular: No chest pain, No claudication, No palpitations Abdomen: + nausea, No pain, No vomiting Musculoskeletal: + joint pain (R ankle at medial malleolus when palpated or weight bearing), + problem reported (8/10 burning pain in LLE over area of cellulitis), + swelling (LLE) Genitourinary - Male: No dysuria, No hematuria, No urinary retention Neurologic: No numbness/tingling, No paralysis, No weakness Integumentary: + color change (erythema over LLE), No itch, No rash Physical Exam: General Appearance: WD/WN, no apparent distress Eyes: normal inspection, PERRL, EOMI ENT: normal ENT inspection, hearing grossly normal, pharynx normal Neck: supple, no JVD, trachea midline Respiratory/Chest: lungs clear, normal breath sounds, no respiratory distress Cardiovascular: regular rate, rhythm, no gallop, no murmur Abdomen / GI: normal bowel sounds, non tender, soft Extremities: normal capillary refill, + swelling (LLE) Neurologic/Psychiatric: alert, normal mood/affect, oriented x 3 Skin: normal color, warm/dry, + rash (seborrheic dermatits over center of chest and right thigh), + pertinent finding (area of erythema over LLE. + for tinea pedis bilaterally) (Rosangela Pack ., JONNY) Hospital Course 46 y/o male, resident of [facility], with a history of depression presents to the ED on 10/05 with left lower extremity swelling x 2 weeks and a fever which started 1 day prior to arrival. Pt has failed outpatient abx including oral Augmentin and IV vancomycin and Rocephin. Cellulitis of left lower extremity -Admit to med/surg -Lactate WNL -Blood cultures NGTD x 2 -LLE Doppler US negative for DVT -MRI LLE shows cellulitis, negative for abscess, osteomyelitis or other acute disease -IV daptomycin and imipenem per ID recs, did show improve. Spoke with Dr. Owen today about discharge, will D/C imipenem and continue daptomycin alone per his recs. Received total of 5 doses while inpatient, continue for 5 more days. 2 doses will be provided by [facility] pharmacy -ID consulted, appreciate recs: Continue daptomycin for total of 10 days -Pain control with tramadol 50 mg PO q4h prn pain. Will add ASA 325 mg PO BID for pain/inflammation as well as to thin blood. Dopplers also showed trace non- occlusive thrombi in varicose veins. Right lower extremity tenderness -Medial malleolus TTP but no typical cellulitis s/s, sensation and pulses intact -RLE Doppler US negative for DVT -Xray Tib/fib negative for fractures, bony lesions -Ankle 3 view x-ray negative for fractures, bony lesions -Uric acid WNL -Likely tendonitis, continue ASA as above for inflammation Seborrheic dermatitis--center of chest, right thigh. Not itchy per patient -Hydrocortisone 1% cream to apply to affected areas qd until resolution Tinea pedis bilaterally -Ketoconazole 2% cream to apply to bottom of feet and b/w toes qd x 6 weeks Fevers--resolved, no fevers for 48 hours, likely secondary to cellulitis -UA negative for UTI -BCX NGTD Mild hypokalemia -Potassium 3.3 on 10/07 -KCl 20 mEq PO x 1 -Potassium 3.4 on 10/09, another 20 mEq PO x 1 Depression: -Continue mirtazapine 15 mg PO qhs DVT prophylaxis -Enoxaparin 40 mg SC q24h Code Status -Level I, FULL RESUSCITATION STATUS Total Time Spent: Greater than 30 minutes This includes examination of the patient, discharge planning, medication reconciliation, and communication with other providers. (Rosangela Pack ., JONNY) Attending Attestation: Pt seen/examined, chart reviewed, and care plan d/w ARELY Pack on day of discharge. I agree w/ the romo components of her discharge summary as outlined. 46yo male, prisoner at [facility], with b/l LE cellulitis. Had failed outpatient treatment despite IV vancomycin for several days. Had uneventful hospital course marked by resolution of fever and improvement of the cellulitis. Last fever was AM of 10/07/16. Improved with use of daptomycin and imipenem. Seen by Dr. Negrito Owen, ID - he recommended a total of 10 days of IV daptomycin ( received 5 days while hospitalized). Imaging studies of his legs failed to show DVT or signs of more invasive infection. Tiny thrombus was seen in the left leg varicose veins; this can be treated like a superficial phlebitis with aspirin. His right ankle pain may have been due to resolving cellulitis. Other possibility is that of right ankle tendonitis as his imaging studies were normal. Lastly, he had elevated BPs throughout his stay but does not carry a diagnosis of HTN. If he continues to run high at the [facility] strong consideration to treating the blood pressure is recommended. discharge exam - gen - NAD mouth - MMM neck - no JVD heart - RRR, s1, s2, no murmur lungs - CTA b/l abd - soft, NT ext - trace edema b/l ankles, pulses 2+ b/l skin - hyperpigmentation changes distal medial leg on right as well as on the sagastume on left tib-fib; he has numerous freckles on his face and back; resolving cellulitis of the left anterior distal leg (sagastume / tib-fib) with minimal warmth -- the redness does NOT extend to the posterior calf; severe tinea pedis of both feet; seborrhea of central chest and groin Bal Barry MD (Bal Barry MD) Discharge Instructions Please refer to the electronic Patient Visit Report (Discharge Instructions) for additional information. (Rosangela Pack ., PAYanelisC) Additional Copies To [facility]
[2016-10-09 15:10] VITALS: BP 166/101; PULSE 75; TEMP 36.8; O2SAT 97
[2016-10-09 15:13] VITALS: BP 165/103
[2016-10-09] MEDS: DAPTOmycin IV 400 MG in SODIUM CHLORIDE 0.9% 50ML 50 ML IV SCH (15:19)
--- NOTE | 2016-10-09 15:49 | Infectious Disease Progress Nt ---
Progress Note Date of Service Oct 09, 2016. Subjective Pt evaluation today including: conversation w/ patient, physical exam, chart review, lab review, review of studies, conversation w/ security system sales consultant, review of inpatient medication list Patient continues to improve. Pain controlled. No fever. Erythema receding. All Other Systems: Reviewed and Negative Medications Current Inpatient Medications Medications (Trade) Dose Ordered Sig/Moises Route Start Time Stop Time Status Last Admin Dose Admin Enoxaparin Sodium (Lovenox Inj) 40 mg Q24H SQ 10/05/16 21:00 11/04/16 20:59 10/07/16 20:52 40 MG Acetaminophen (Tylenol Tab) 650 mg Q4H PRN PO 10/05/16 15:45 11/04/16 15:44 10/06/16 15:45 650 MG Polyethylene (Miralax Powder Packet) 17 gm DAILY PRN PO 10/05/16 15:45 11/04/16 15:44 10/08/16 09:51 17 GM Ondansetron HCl 4 mg 4 mg Q6H PRN IV 10/05/16 15:45 11/04/16 15:44 Daptomycin 400 mg/ Sodium Chloride 58 ml @ 100 mls/hr DAILY@1900 IV 10/05/16 19:00 10/15/16 18:59 10/09/16 15:19 100 MLS/HR Imipenem/ Cilastatin Sodium/ Dextrose (Primaxin Iv/D5 100ml) 110 ml @ 100 mls/hr Q6H IV 10/05/16 20:00 10/15/16 19:59 10/09/16 13:58 100 MLS/HR Morphine Sulfate (MoRPHine SULFATE INJ) 4 mg Q4H PRN IV 10/05/16 18:30 10/19/16 18:29 10/05/16 20:33 4 MG Mirtazapine (Remeron Tab) 15 mg HS PO 10/06/16 21:00 11/05/16 20:59 Gadobutrol (Gadavist) 10 mmol UD PRN IV 10/05/16 23:00 10/09/16 22:59 Tramadol HCl (Ultram Tab) 50 mg Q4H PRN PO 10/06/16 13:30 11/05/16 13:29 10/09/16 13:57 50 MG Heparin Sodium (Porcine) (Heparin 10 Unit/ ml 5 ml Flush) 5 ml PRN PRN FLUSH 10/08/16 16:00 11/07/16 15:59 10/09/16 11:24 5 ML Polyethylene (Miralax Powder Packet) 17 gm BID PO 10/09/16 09:00 11/08/16 08:59 10/09/16 09:00 17 GM Ketoconazole (Nizoral 2% Crm) 1 appln DAILY EXT 10/10/16 09:00 10/20/16 08:59 Hydrocortisone (Hydrocortisone 1% Crm) 1 appln DAILY EXT 10/10/16 09:00 11/09/16 08:59 Aspirin (Ecotrin Tab) 325 mg BID PO 10/09/16 21:00 11/08/16 20:59 Objective Vital Signs Date Time Temp Pulse Resp B/P Pulse Ox O2 Delivery O2 Flow Rate FiO2 10/09/16 15:13 165/103 10/09/16 15:10 36.8 75 18 166/101 97 Room Air 10/09/16 07:40 Room Air 10/09/16 07:06 37.0 81 17 156/92 97 Room Air 10/09/16 01:30 Room Air 10/08/16 23:09 37.0 70 18 152/85 96 Room Air 10/08/16 16:30 Room Air Physical Exam General Appearance: WD/WN, no apparent distress Eyes: normal inspection, sclerae normal ENT: normal ENT inspection, pharynx normal Neck: supple, no adenopathy, trachea midline Respiratory/Chest: lungs clear, normal breath sounds, no respiratory distress Cardiovascular: regular rate, rhythm, no gallop, no murmur Abdomen: normal bowel sounds, non tender, soft, no organomegaly Extremities: no calf tenderness, normal capillary refill Neurologic/Psychiatric: alert, oriented x 3 Skin: normal color, no rash, + pertinent finding (improving cellulitis) Lymphatic: no adenopathy Laboratory Results Last 24 Hours Test 10/09/16 09:55 10/09/16 15:38 White Blood Count 5.06 K/uL Red Blood Count 4.11 M/uL Hemoglobin 12.5 g/dL Hematocrit 38.4 % Mean Corpuscular Volume 93.4 fL Mean Corpuscular Hemoglobin 30.4 pg Mean Corpuscular Hemoglobin Concent 32.6 g/dl RDW Standard Deviation 43.5 fL RDW Coefficient of Variation 12.7 % Platelet Count 260 K/uL Mean Platelet Volume 9.8 fL Sodium Level 140 mmol/L Potassium Level 3.4 mmol/L Chloride Level 101 mmol/L Carbon Dioxide Level 33 mmol/L Anion Gap 6.0 mmol/L Blood Urea Nitrogen 9 mg/dl Creatinine 1.10 mg/dl Est Creatinine Clear Calc Drug Dose 103.8 ml/min Estimated GFR () 91.5 Estimated GFR (Non- 79.0 BUN/Creatinine Ratio 8.4 Random Glucose 91 mg/dl Uric Acid 4.0 mg/dl Calcium Level 8.5 mg/dl Assessment and Plan Bilateral lower extremity cellulitis with excellent response to daptomycin and imipenem. Not clear why patient failed vancomycin unless levels were not adequate. I would continue patient on IV daptomycin alone, and likely will require in the range of 7-10 days depending on clinical response. Discussed with hospitalist service.
[2016-10-09 16:56] VITALS: BP 165/103; PULSE 75; TEMP 36.8; O2SAT 97
[2016-10-09 17:48] VITALS: BP 164/99
[2016-10-09] MEDS ORDERED: ASPIRIN 325 MG ECTAB PO SCH (21:00)
[2016-10-10] MEDS ORDERED: HYDROCORTISONE 1% CR 30 GM TUBE EXT SCH (09:00)
[2016-10-10] MEDS ORDERED: KETOCONAZOLE 2% CR 15 GM TUBE EXT SCH (09:00)
== END 2016-10-09 18:30 | disposition home or self-care (01) | DRG 603 ==
LOC: ENRESERVDT → ENRESERVTM → C.EDB 11:04 → C.MSW 15:36
PROVIDERS: ADMIT Family Medicine; ATTEND Internal Medicine
DX: L03.116 Cellulitis of left lower limb (principal); L03.115 Cellulitis of right lower limb; F32.9 Major depressive disorder, single episode, unspecified; I83.892 Varicose veins of left lower extremity with other complications; I83.812 Varicose veins of left lower extremity with pain; E87.6 Hypokalemia; R50.9 Fever, unspecified; L21.9 Seborrheic dermatitis, unspecified; R03.0 Elevated blood-pressure reading, without diagnosis of hypertension; B35.3 Tinea pedis; Z79.899 Other long term (current) drug therapy

== ENCOUNTER 2016-10-14 11:19 | Emergency (ER) | payer OTHER ==
[~2016-10-14] VITALS: Ht 188 cm; Wt 100.2 kg
[~2016-10-14 11:19] MED LIST changes: -ASPI325T45 PO; -CEFT1INJ57 IV; -IBUP-1427 PO; -VANC500I IV
[2016-10-14 11:30] VITALS: TEMP 37; Ht 188 cm; Wt 100.2 kg
[2016-10-14] MEDS ORDERED: ASPI325T45 PO (12:18)
[2016-10-14] MEDS ORDERED: IBUP-1427 PO (12:24)
--- NOTE | 2016-10-14 13:05 | EMERGENCY ROOM VISIT NOTE ---
History Report prepared by Rohith: Chata Garcia Under the Supervision of: Dr. John Helotn D.O. First contact with patient: 12:55 Chief Complaint: INFECTION Stated Complaint: NON HEARLING CELLULITIS LLE-REDNESS, WARMTH Nursing Triage Summary: Patient is prisoner and was sent over by [facility]. Patient states has been treated for the last month for redness, swelling, warmth in LLE. Patient states has been receiving IV antibiotics through TIGRE PICC line. Patient states there is a blood clot in right ankle. History of Present Illness The patient is a 46 year old male who presents to the Emergency Room with complaints of a persistent infection to his left lower extremity that worsened Wednesday. He currently rates his discomfort as a 10/10 in severity. The patient states that he was diagnosed with a cellulitis and was evaluated for his infection. He states that his symptoms were getting better so [facility] The patient states that since he arrived back at the facility, his warmth, redness, and pain has worsened in his left leg. He additionally notes that his pain in his right ankle has been worsening, noting that he has a blood clot in the area. The patient notes an intermittent fever, but denies any rash or cut. He denies taking any other medications daily and denies any previous surgeries or active medical problems. The patient states that he has been getting his antibiotics once per day through a PICC line in his right upper extremity. Source of History: patient Onset: Wednesday Position: other (global) Symptom Intensity: 10/10 Quality: other (infection) Timing: worsening Associated Symptoms: + fevers, No rash Note: Associated Symptoms: warmth, redness worsening to left leg, pain to righ tankle Review of Systems See HPI for pertinent positives & negatives. A total of 10 systems reviewed and were otherwise negative. Past Medical & Surgical Medical Problems: (1) Lower extremity cellulitis Family History No pertinent family history stated Social History Smoking Status: Never Smoker Marital Status: single Housing Status: other ([facility]) Current/Historical Medications Scheduled Aspirin (Aspirin), 325 MG PO DAILY Daptomycin (Daptomycin), 400 MG IV DAILY Hydrocortisone (Topical) (Hydrocortisone), 1 APPLN EXT DAILY Ibuprofen Tab (Motrin), 600 MG PO TID Ketoconazole (Ketoconazole), 1 APPLN EXT DAILY Mirtazapine (Mirtazapine), 15 MG PO HS Scheduled PRN Tramadol HCl (Tramadol HCl), 50 MG PO Q4H PRN for Pain Allergies Coded Allergies: Shrimp (Verified Allergy, Unknown, HIVES, 10/14/16) Physical Exam Vital Signs Date Time Temp Pulse Resp B/P Pulse Ox O2 Delivery O2 Flow Rate FiO2 10/14/16 15:30 64 16 181/108 100 Room Air 10/14/16 13:40 70 11 180/97 98 Room Air 10/14/16 13:25 77 10/14/16 13:18 98 Room Air 10/14/16 11:30 37.0 78 18 184/104 97 Room Air Physical Exam GENERAL: Patient is awake, alert, and in no acute distress. Patient is resting comfortably and showing no signs of anxiety EYES: The conjunctivae are clear. The pupils are round and reactive. EARS, NOSE, MOUTH AND THROAT: The nose is without any evidence of any deformity. Mucous membranes are moist tongue is midline NECK: The neck is nontender and supple. RESPIRATORY: Normal respiratory effort is noted there is no evidence of wheezing rhonchi or rales CARDIOVASCULAR: Regular rate and rhythm noted there no murmurs rubs or gallops normal S1 normal S2 GASTROINTESTINAL: The abdomen is soft. Bowel sounds are present in all quadrants. Abdomen is nontender MUSCULOSKELETAL/EXTREMITIES: There is no evidence of gross deformity full range of motion is noted in the hips and shoulders SKIN: Pedal edema noted bilaterally left greater than right. Pulses are appropriate and symmetric. Erythema noted over the ventral aspect of the left leg. No calf tenderness. NEUROLOGIC: Patient is awake alert and oriented x3 strength is symmetric patellar reflexes are 2+ bilaterally Medical Decision & Procedures ER Provider Diagnostic Interpretation: US results as stated below per my review and radiologist interpretation. BILATERAL LOWER EXTREMITY VENOUS DOPPLER HISTORY: Lower extremity swelling and redness COMPARISON STUDY: Venous Doppler 10/15/2016. FINDINGS: There is normal compressibility, flow, and augmentation within the bilateral lower extremity deep venous systems. Left inguinal lymphadenopathy is not significantly changed. Superficial varicosities within the left calf contain minimal nonocclusive thrombus. This is similar to the prior study. IMPRESSION: No DVT within the right or left lower extremity. No change in the left inguinal lymphadenopathy and minimal nonocclusive thrombus within the left calf superficial veins. Electronically signed by: Tito Palumbo M.D. 10/14/2016 3:01 PM Dictated Date/Time: 10/14/2016 2:58 PM Laboratory Results 10/14/16 13:25 Red Blood Count 3.97, Mean Corpuscular Volume 93.2, Mean Corpuscular Hemoglobin 30.0, Mean Corpuscular Hemoglobin Concent 32.2, Mean Platelet Volume 10.1, Neutrophils (%) (Auto) 63.8, Lymphocytes (%) (Auto) 20.4, Monocytes (%) (Auto) 10.4, Eosinophils (%) (Auto) 4.5, Basophils (%) (Auto) 0.6, Neutrophils # (Auto ) 4.41, Lymphocytes # (Auto) 1.41, Monocytes # (Auto) 0.72, Eosinophils # (Auto ) 0.31, Basophils # (Auto) 0.04 10/14/16 13:25 Test 10/14/16 13:25 10/14/16 13:36 White Blood Count 6.91 K/uL (4.8-10.8) Red Blood Count 3.97 M/uL (4.7-6.1) Hemoglobin 11.9 g/dL (14.0-18.0) Hematocrit 37.0 % (42-52) Mean Corpuscular Volume 93.2 fL (80-100) Mean Corpuscular Hemoglobin 30.0 pg (25-34) Mean Corpuscular Hemoglobin Concent 32.2 g/dl (32-36) Platelet Count 341 K/uL (130-400) Mean Platelet Volume 10.1 fL (7.4-10.4) Neutrophils (%) (Auto) 63.8 % Lymphocytes (%) (Auto) 20.4 % Monocytes (%) (Auto) 10.4 % Eosinophils (%) (Auto) 4.5 % Basophils (%) (Auto) 0.6 % Neutrophils # (Auto) 4.41 K/uL (1.4-6.5) Lymphocytes # (Auto) 1.41 K/uL (1.2-3.4) Monocytes # (Auto) 0.72 K/uL (0.11-0.59) Eosinophils # (Auto) 0.31 K/uL (0-0.5) Basophils # (Auto) 0.04 K/uL (0-0.2) RDW Standard Deviation 43.5 fL (36.4-46.3) RDW Coefficient of Variation 12.7 % (11.5-14.5) Immature Granulocyte % (Auto) 0.3 % Immature Granulocyte # (Auto) 0.02 K/uL (0.00-0.02) Erythrocyte Sedimentation Rate 22 mm/hr (0-14) Anion Gap 7.0 mmol/L (3-11) Est Creatinine Clear Calc Drug Dose 119.0 ml/min Estimated GFR () 107.9 Estimated GFR (Non- 93.1 BUN/Creatinine Ratio 16.6 (10-20) Bedside Lactic Acid Venous 0.73 mmol/L (0.90-1.70) Calcium Level 8.6 mg/dl (8.5-10.1) Total Bilirubin 0.3 mg/dl (0.2-1) Direct Bilirubin < 0.1 mg/dl (0-0.2) Aspartate Amino Transf (AST/SGOT) 24 U/L (15-37) Alanine Aminotransferase (ALT/SGPT) 33 U/L (12-78) Alkaline Phosphatase 80 U/L (45-117) C-Reactive Protein 2.71 mg/dl (0-0.29) Total Protein 7.5 gm/dl (6.4-8.2) Albumin 3.5 gm/dl (3.4-5.0) Urine Color YELLOW Urine Appearance CLEAR (CLEAR) Urine pH 6.5 (4.5-7.5) Urine Specific [place] 1.013 (1.000-1.030) Urine Protein NEG (NEG) Urine Glucose (UA) NEG (NEG) Urine Ketones NEG (NEG) Urine Occult Blood NEG (NEG) Urine Nitrite NEG (NEG) Urine Bilirubin NEG (NEG) Urine Urobilinogen NEG (NEG) Urine Leukocyte Esterase NEG (NEG) Laboratory results per my review. Medications Administered Medications (Trade) Dose Ordered Sig/Moises Route Start Time Stop Time Status Last Admin Dose Admin Heparin Sodium (Porcine) (Heparin 10 Unit/ ml 5 ml Flush) 5 ml STK-MED ONCE .ROUTE 10/14/16 13:11 10/14/16 13:13 DC 10/14/16 13:11 5 ML ED Course 1257: The patient was evaluated in room B9. A complete history and physical examination were performed. 1311: Ordered Heparin Sodium (Porcine) 5 ml .route. 1529: I reevaluated the patient and he is doing fine. I discussed the exam findings and I discussed the treatment plan. He verbalized complete understanding and agreement. He is ready to go back to the facility. 1535: I discussed the patients case with the nursing malt house supervisor at [facility]. The patient will continue with IV antibiotics. Medical Decision Differential diagnosis: Etiologies such as cellulitis, abscess, MRSA infection, DVT, necrotizing fasciitis, dermatitis, drug eruption, as well as others were entertained. Nursing notes reviewed. Patient's previous electronic medical records reviewed. The patient is a 46-year-old male who presented to the emergency department for an evaluation of cellulitis. The patient was recently admitted to our facility for cellulitis. [facility] using [facility] line. The patient has been using the antibiotics. He presented today because they felt his symptoms were not improving. The patient did not have a fever. His ultrasound did not show any signs of DVT. His white blood cell count was normal. At this time I feel he should continue IV antibiotics. I discussed this with the nurse market research senior project manager [facility] the [facility]. I recommend that he continue all medications as prescribed and [facility]-up with the [facility] medical staff as soon as possible. Otherwise return to the emergency department immediately if symptoms change worsen or the need arises. Impression Primary Impression: Cellulitis of left lower extremity Scribe Attestation The scribe's documentation has been prepared under my direction and personally reviewed by me in its entirety. I confirm that the note above accurately reflects all work, treatment, procedures, and medical decision making performed by me. Departure Information Dispostion Home / Self-Care Referrals [facility] (PCP) Forms HOME CARE DOCUMENTATION FORM, IMPORTANT VISIT INFORMATION, WORK / SCHOOL INSTRUCTIONS Patient Instructions Cellulitis Liya Barrett [facility] Additional Instructions Continue all medications as prescribed. Keep legs elevated and continue using compression stockings if they are provided.
[2016-10-14 13:18] VITALS: O2SAT 98
[2016-10-14 13:53] LABS: BASO % 0.6 %; BASO ABS # 0.04 K/uL (0-0.2); COMPLETE YES; EOS % 4.5 %; IG% 0.3 %; LYMPH % 20.4 %; LYMPH ABS # 1.41 K/uL (1.2-3.4); MEAN CELL VOLUME 93.2 fL (80-100); MEAN CORPUSCULAR HGB CONC 32.2 g/dl (32-36); MEAN PLATELET VOLUME 10.1 fL (7.4-10.4); MONO % 10.4 %; NEUT % 63.8 %; PLATELET COUNT 341 K/uL (130-400); RED BLOOD COUNT 3.97 M/uL (4.7-6.1); WHITE BLOOD COUNT 6.91 K/uL (4.8-10.8)
[2016-10-14 14:15] LABS: ALT/SGPT 33 U/L (12-78); BLOOD UREA NITROGEN 16 mg/dl (7-18); BUN/CREATININE RATIO 16.6 (10-20); C-REACTIVE PROTEIN 2.71 mg/dl (0-0.29); CALCIUM 8.6 mg/dl (8.5-10.1); CARBON DIOXIDE 27 mmol/L (21-32); CHLORIDE 104 mmol/L (98-107); CREATININE 0.96 mg/dl (0.60-1.40); GLUCOSE 77 mg/dl (70-99); SODIUM 138 mmol/L (136-145)
[2016-10-14 14:17] LABS: ALKALINE PHOSPHATASE 80 U/L (45-117); AST/SGOT 24 U/L (15-37)
[2016-10-14 14:29] LABS: URINE APPEARANCE CLEAR (CLEAR); URINE BILIRUBIN NEG (NEG); URINE COLOR YELLOW; URINE NITRITE NEG (NEG); URINE PH 6.5 (4.5-7.5); URINE SPECIFIC GRAVITY 1.013 (1.000-1.030); UROBILINOGEN NEG (NEG)
[2016-10-14 14:36] LABS: MANUAL MICROSCOPIC REQUIRED? NO; REVIEW REQ? NO
--- NOTE | 2016-10-14 15:02 | DIAGNOSTIC IMAGING REPORT ---
BILATERAL LOWER EXTREMITY VENOUS DOPPLER HISTORY: Lower extremity swelling and redness COMPARISON STUDY: Venous Doppler 10/15/2016. FINDINGS: There is normal compressibility, flow, and augmentation within the bilateral lower extremity deep venous systems. Left inguinal lymphadenopathy is not significantly changed. Superficial varicosities within the left calf contain minimal nonocclusive thrombus. This is similar to the prior study. IMPRESSION: No DVT within the right or left lower extremity. No change in the left inguinal lymphadenopathy and minimal nonocclusive thrombus within the left calf superficial veins. Electronically signed by: Tito Palumbo M.D. 10/14/2016 3:01 PM Dictated Date/Time: 10/14/2016 2:58 PM
[2016-10-14 15:30] VITALS: BP 181/108; PULSE 64; O2SAT 100
== END 2016-10-14 16:00 ==
LOC: C.EDB 11:23
DX: L03.116 Cellulitis of left lower limb (principal); Z79.82 Long term (current) use of aspirin; Z79.899 Other long term (current) drug therapy